=== PATIENT | female | born 1950 | race Caucasian/White ===

== ENCOUNTER 2016-07-06 15:58 | Emergency (ER) | payer OTHER ==
[~2016-07-06] VITALS: Wt 70.0 kg
--- NOTE | 2016-07-06 19:20 | RADRPT ---
PROCEDURE: XR Thoracic Spine. CLINICAL INDICATION: Back pain. TECHNIQUE: Three views. Frontal, lateral, and lateral swimmers. COMPARISON: None available FINDINGS: There is normal stature and alignment of the vertebrae. There is no fracture. There is no lytic or blastic lesion. The disk height is normal. There is flowing ossification along the anterolateral aspect of 7 contiguous lower thoracic vertebra l bodies, with preservation of disk height consistent with diffuse idiopathic skeletal hyperostosis (DISH). IMPRESSION: 1. Diffuse idiopathic skeletal hyperostosis. 2. Otherwise unremarkable images of the thoracic spine. RPTAT: QQ .Rick Rivero MD, MD Date Time Electronically viewed and signed by .Rick Rivero MD, on 07/06/2016 19:19 .R/
--- NOTE | 2016-07-06 20:04 | RADRPT ---
PROCEDURE: XR Lumbar Spine. CLINICAL INDICATION: Back pain. TECHNIQUE: Three views. AP, lateral and cone-down lateral view of the lumbar spine were obtained. COMPARISON: No prior studies are available for comparison. FINDINGS: There is mild lumbar scoliosis convex left. Alignment is otherwise normal. There is no fracture. There is no lytic or blastic lesion. There are degenerative changes with small osteophytes throughout. There is disk space narrowing and L3-4 and L4-5. Vascular calcifications are present consistent with atherosclerosis. IMPRESSION: 1. Mild scoliosis convex left. 2. Degenerative changes throughout. 3. Atherosclerosis. RPTAT: QQ .Rick Rivero MD, MD Date Time Electronically viewed and signed by .Rick Rivero MD, MD on 07/06/2016 20:04 .R/
[2016-07-06] MEDS ORDERED: CYCL-319 PO (20:09)
[2016-07-06] MEDS ORDERED: NAPR-260 PO (20:09)
[2016-07-06] MEDS ORDERED: HYDR-906 PO (20:09)
[2016-07-06 20:32] VITALS: BP 135/66; PULSE 75; RESP 20
--- NOTE | 2016-07-07 06:15 | ERD ---
DATE OF SERVICE: HISTORY OF PRESENT ILLNESS: The patient is a 65-year-old female complaining of back pain. The kelle ent was at work 2 days ago. A door opened it on her and hit her in the midline spine and she is hav ing pain in her thoracic and lumbar region. She is walking without difficulty. She has not taken m edications for her symptoms. She has no numbness or tingling down her leg. She has control of her urine and has no bowel incontinence. She did not have any loss of consciousness. No chest pain, no shortness of breath, no weakness. She has no saddle anesthesia. MEDICAL HISTORY: Hypertension, hypercholesterolemia. ALLERGIES TO MEDICATIONS: Denies. SURGICAL HISTORY: Denies. SOCIAL HISTORY: Denies. REVIEW OF SYSTEMS: A 12-point review of systems was done. Refer to HPI for positives, all other sy stems negative. PHYSICAL EXAMINATION VITAL SIGNS: Temperature 98, pulse 83, blood pressure is 138/70, respiratory rate 18, O2 saturation 99% on room air. Pain intensity is 0/10. GENERAL: The patient is well-appearing, well-nourished, no acute distress. HEENT: Atraumatic. Conjunctivae are pink. Pupils equal, round, and reactive to light. There is no scleral icterus. Tympanic membranes clear bilaterally. Oropharynx clear. No nystagmus or photophobi a. CHEST: Clear to auscultation bilaterally. There are no rales, wheezes or rhonchi. HEART: Regular rate and rhythm. No murmurs, clicks, rubs or gallops. No S3 or S4. ABDOMEN: Soft, nontender and nondistended. Good bowel sounds. No rebound or guarding. No gross kalia tonitis. No gross organomegaly or masses. No Cooper sign or McBurney point tenderness. BACK: The patient has mild tenderness to palpation along the lumbar and thoracic regions. However, there is no midline tenderness. No bony step-off. No skin changes noted. SKIN: There is no apparent rash or petechia. The skin is warm and dry. EMERGENCY ROOM COURSE: The patient had x-rays done in the ER. The patient had a lumbar spine, 3 vi ew which showed: 1. Mild scoliosis convex left. 2. Degenerative changes throughout. 3. Atherosclerosis. The patient also had a thoracic spine, a 3-view x-ray which showed: 1. Diffuse idiopathic skeletal hyperostosis. 2. Otherwise, unremarkable images of the thoracic spine. DIAGNOSIS: Musculoskeletal strain and contusion. MEDICAL DECISION MAKING: The patient's exam was nonconcerning. X-rays are within normal limits and patient's mechanism of injury was low impact so I did not feel there is concern for acute fracture or dislocation. The patient likely has bone contusion which is causing pain. DISCHARGE: The patient is discharged stable. The patient was given a prescription for [place], napro xen and Flexeril and told to return to the ER if symptoms change or worsen. The patient was given s trict ER precautions. All other questions answered at time of discharge. Discharge summary given a t the time of departure. The patient understood and complied with plan. Dictated By: ALAN GARCIA for JOSHUA GALLEGOS/NELI Conf#: [id number] DID#: [id number]
== END 2016-07-06 20:35 | disposition home or self-care (01) ==
LOC: E/R 15:58 → FTE 20:35
DX: S30.0XXA Contusion of lower back and pelvis, initial encounter (principal); S20.229A Contusion of unspecified back wall of thorax, initial encounter; S39.012A Strain of muscle, fascia and tendon of lower back, initial encounter; S29.012A Strain of muscle and tendon of back wall of thorax, initial encounter; I10 Essential (primary) hypertension; W22.8XXA Striking against or struck by other objects, initial encounter; Y92.89 Other specified places as the place of occurrence of the external cause
CPT/HCPCS: 72072; 72100